=== PATIENT | male | born 1935 | race Caucasian/White ===

== ENCOUNTER 2017-11-03 08:48 | Day surgery (SDC) | payer MEDICARE ==
[~2017-11-03] VITALS: Ht 175.3 cm; Wt 97.5 kg
[~2017-11-03 08:48] MED LIST: ADULT LOW DOSE81 MG PO; ALEVE220 MG PO; DOXAZOSIN MESYLA2 MG PO; FISH OIL500 M1 PO; LISINOPRIL20 MG PO; MSM1000 M2 PO; NIACIN ER750 MG PO; OMEPRAZOLE20 MG PO
[2017-11-03 09:00] VITALS: BP 152/69
[2017-11-03 09:31] VITALS: BP 152/69
[2017-11-03 09:32] VITALS: BP 168/84
--- NOTE | 2017-11-03 09:38 | Procedure Note ---
Procedure detail Date of procedure: 11/03/17 Anesthesiologist: Marty Keita Complications: None Pre-procedure diagnosis: Degenerative disc disease lumbar spine multiple levels. Lumbar radiculopathy symptoms. Post-procedure diagnosis: Same. Indications for procedure: Very pleasant 82-year-old white male that returns our procedure clinic today for a therapeutic lumbar epidural steroid injection the L4-5 level. Patient responded extremely well to injections in the past. He describes his low back pain as constant, dull, aching. He rates the pain 7/10. Procedure detail: Procedure: Lumbar epidural steroid injection under fluoroscopy Informed consent was obtained and the risks and benefits of the procedure were explained to the patient. The patient was taken to the procedure room and noninvasive monitors placed, including noninvasive blood pressure cuff and pulse oximeter. The back was viewed using C-arm Fluoroscopy and prepped using Betadine as a cleansing solution and the L4-L5 interspace was palpated. Skin and subcutaneous tissues were anesthetized using lidocaine 1.5% and a 25-gauge needle. After this, an 18-gauge Touhy epidural needle was placed into the L4-L5 interspace and advanced using fluoroscopic guidance and loss of resistance to air until the epidural space was encountered. After confirmation of needle placement in the epidural space, with dye, a solution containing lidocaine 1.5%, 4 mL and Depo-Medrol 80 mg were incrementally injected into the lumbar epidural space. The patient tolerated the procedure well with no complications. The patient was observed in the Pain Clinic and then discharged home neurologically intact. Plan and disposition: Patient was reevaluated 10 minutes post procedure. He is doing very well. He'll return to see us in the pain clinic for further evaluation when needed. at [id number]
[2017-11-03 09:44] VITALS: BP 162/56
== END 2017-11-03 09:47 | disposition home or self-care (01) ==
LOC: PM 08:48
PROC: 3E0R3BZ Introduction of Anesthetic Agent into Spinal Canal, Percutaneous Approach (ICD-10-PCS; principal; 2017-11-03)
PROC: 3E0R33Z Introduction of Anti-inflammatory into Spinal Canal, Percutaneous Approach (ICD-10-PCS; 2017-11-03)
PROC: B01B1ZZ Fluoroscopy of Spinal Cord using Low Osmolar Contrast (ICD-10-PCS; 2017-11-03)
DX: M51.16 Intervertebral disc disorders with radiculopathy, lumbar region (principal)
CPT/HCPCS: J1040; Q9966